=== PATIENT | female | born 1940 | race Caucasian/White ===

== ENCOUNTER 2023-08-08 12:57 | Day surgery (SDC) | payer OTHER ==
[2023-08-04 15:51] LABS: BASOPHILS % (AUTO) 0.6 % (0-1); EOSINOPHILS # (AUTO) 0.3 X10'3 (0-0.9); EOSINOPHILS % (AUTO) 4.8 % (0-6); LYMPHOCYTES # (AUTO) 2.8 X10'3 (1.1-4.8); LYMPHOCYTES % (AUTO) 38.6 % (21-51); MEAN CORPUSCULAR HEMOGLOBIN 31.6 PG (27.0-31.0); MEAN CORPUSCULAR VOLUME 95.6 FL (78-98); MONOCYTES # (AUTO) 0.5 X10'3 (0-0.9); MONOCYTES % (AUTO) 6.4 % (2-12); NEUTROPHILS # (AUTO) 3.6 X10'3 (1.8-7.7); NEUTROPHILS % (AUTO) 49.6 % (42-75); PRE OP HEMATOCRIT 40.6 % (35.0-45.0); PRE OP HEMOGLOBIN 13.4 g/dL (12.0-16.0); PRE OP PLATELET COUNT 239 X10'3 (140-440); PRE OP WHITE BLOOD COUNT 7.2 10'3 (4.8-10.8); RED BLOOD COUNT 4.24 X10'6 (4.20-5.60); RED CELL DISTRIBUTION WIDTH 13.5 % (11.5-14.5)
[2023-08-04 16:11] LABS: ALBUMIN 3.5 G/DL (3.4-5.0); ALBUMIN/GLOBULIN RATIO 0.9 (1.1-1.5); ALKALINE PHOSPHATASE 111 IU/L (46-116); BLOOD UREA NITROGEN 17 MG/DL (7-18); BUN/CREATININE RATIO 22.7 (10.0-20.0); CALCIUM 9.2 MG/DL (8.5-10.1); CHLORIDE 104 MMOL/L (99-107); CREATININE 0.75 MG/DL (0.40-0.90); PRE OP ALT 35 U/L (30-65); PRE OP ANION GAP 4 (8-16); PRE OP AST 35 U/L (10-37); PRE OP BILIRUB, TOTAL 0.6 MG/DL (0.0-1.0); PRE OP GLUCOSE 93 MG/DL (70-104); PRE OP POTASSIUM 3.9 MMOL/L (3.4-5.1); PRE OP SODIUM 138 MMOL/L (135-145); TOTAL CARBON DIOXIDE 29.9 MMOL/L (24-32); TOTAL PROTEIN 7.3 G/DL (6.4-8.2); eGFR 74 ML/MIN
[2023-08-08] VITALS (10 sets, daily range): BP systolic 106–162; BP diastolic 52–95; PULSE 68–98; RESP 11–19; TEMP 98.4; O2SAT 93–98
[~2023-08-08] VITALS: Ht 172.7 cm; Wt 98.5 kg
[~2023-08-08 12:57] MED LIST: ATOR20TA66 PO; GABAPENTIN PO; MELO-100 PO; OMEP20CA16 PO; SERT-434 PO; ZINC220T3 PO; famotidine 20mg tablet PO ONE; ringers solution, lacted 1,000 ML IV SCH
[2023-08-08] MEDS ORDERED: albuterol 2.5 MG/3 ML nebule NEB ONE (13:35)
[2023-08-08] MEDS ORDERED: sevoflurane 250ml liquid IH ONE (14:27)
[2023-08-08] MEDS ORDERED: dexamethasone sod phosphate 10mg/ml inj ONE (14:27)
[2023-08-08] MEDS ORDERED: neostigmine methylsulfate 1 MG/ML 10ml vial ONE (14:27)
[2023-08-08] MEDS ORDERED: ondansetron/PF 4mg/2ml inj ONE (14:27)
[2023-08-08] MEDS ORDERED: midazolam 1 mg/ML 2ml injection ONE (14:36)
[2023-08-08] MEDS ORDERED: fentaNYL/PF 50MCG/1 ML 2ML syringe ONE (14:36)
[2023-08-08] MEDS ORDERED: morphine 2 MG/ML inj. syringe IV PRN (15:00)
[2023-08-08] MEDS ORDERED: morphine 4 MG/ML inj SYRINge IV PRN (15:00)
[2023-08-08] MEDS ORDERED: ondansetron/PF 4mg/2ml inj IV PRN (15:00)
[2023-08-08] MEDS ORDERED: ringers solution, lacted 1,000 ML IV SCH (15:00)
[2023-08-08] MEDS ORDERED: fentaNYL/PF 50MCG/1 ML 2ML syringe IV PRN ×2 (15:00)
[2023-08-08] MEDS ORDERED: labetalol 20mg/4ml (5mg/ml) syringe IV PRN (15:00)
[2023-08-08] MEDS ORDERED: hydrALAZINE 20mg/ml inj. IV PRN (15:00)
[2023-08-08] MEDS ORDERED: LIDOcaine 2% (20mg/ml) 5ml vial ONE (15:36)
[2023-08-08] MEDS ORDERED: rocuronium 10mg/ml inj IV ONE (15:36)
[2023-08-08] MEDS ORDERED: glycopyrrolate 0.2mg/ml inj ONE (15:36)
[2023-08-08] MEDS ORDERED: propofol inj 20 ML IV ONE (15:36)
[2023-08-08] MEDS ORDERED: albuterol 2.5 MG/3 ML nebule NEB STA (16:14)
== END 2023-08-08 16:57 | disposition home or self-care (01) ==
LOC: PRE-OP 12:57
PROVIDERS: ATTEND Internal Medicine Critical Care Medicine
DX: R91.8 Other nonspecific abnormal finding of lung field (principal); C34.32 Malignant neoplasm of lower lobe, left bronchus or lung; J98.4 Other disorders of lung; J44.9 Chronic obstructive pulmonary disease, unspecified; E66.9 Obesity, unspecified; Z68.33 Body mass index [BMI] 33.0-33.9, adult; G62.9 Polyneuropathy, unspecified; K21.9 Gastro-esophageal reflux disease without esophagitis; M19.90 Unspecified osteoarthritis, unspecified site; F32.A Depression, unspecified; Z85.3 Personal history of malignant neoplasm of breast; Z90.710 Acquired absence of both cervix and uterus; Z90.49 Acquired absence of other specified parts of digestive tract; Z98.890 Other specified postprocedural states; Z87.891 Personal history of nicotine dependence; Z79.899 Other long term (current) drug therapy
CPT/HCPCS: 31624; 31628; 31629; 31653; 36415; 71045; 71250; 80053; 82948; 85025; 87015; 87070; 87102; 87116; 87206; 93005; 94640; 94760; A6258; J1100; J2250; J2405; J2704; J2710; J3010; J3490; J7120; S2900; Z7506; Z7508; Z7512; 31622; 31625; 31626; 31627; 31654; A4615; A4618